=== PATIENT | male | born 1990 | race Caucasian/White ===

== ENCOUNTER 2018-05-05 10:07 | Emergency (ER) | payer MEDICAID ==
[~2018-05-05] VITALS: Ht 185.4 cm; Wt 104.5 kg
[2018-05-05] MEDS ORDERED: LORazepam 2 mg/ml vial IV ONE (10:30)
[2018-05-05] MEDS ORDERED: ketorolac trometh. 30mg/ml inj. IV ONE (10:30)
[2018-05-05 10:37] LABS: BASOPHILS % (AUTO) 0.2 % (0-1); EOSINOPHILS # (AUTO) 0.1 X10'3 (0-0.9); EOSINOPHILS % (AUTO) 0.9 % (0-6); HEMATOCRIT 44.8 % (42.0-52.0); HEMOGLOBIN 15.3 g/dl (14.0-17.9); LYMPHOCYTES # (AUTO) 1.2 X10'3 (1.1-4.8); LYMPHOCYTES % (AUTO) 9.7 % (21-51); MEAN CORPUSCULAR HEMOGLOBIN 33.4 PG (27.0-31.0); MEAN CORPUSCULAR HGB CONC 34.1 % (33.0-36.5); MEAN PLATELET VOLUME 8.5 FL (7.4-10.4); MONOCYTES # (AUTO) 1.2 X10'3 (0-0.9); MONOCYTES % (AUTO) 10.1 % (2-12); NEUTROPHILS # (AUTO) 9.6 X10'3 (1.8-7.7); NEUTROPHILS % (AUTO) 79.1 % (42-75); PLATELET COUNT 261 X10'3 (140-440); RED BLOOD COUNT 4.57 X10'6 (4.70-6.10); RED CELL DISTRIBUTION WIDTH 14.2 % (11.5-14.5); WHITE BLOOD COUNT 12.1 X10'3 (4.5-11.0)
[2018-05-05 10:47] LABS: INR 0.9 INR; PARTIAL THROMBOPLASTIN TIME 29 SECONDS (22-32); PROTHROMBIN TIME 9.7 SECONDS (9.0-12.0)
[2018-05-05 10:52] LABS: ALANINE AMINOTRANSFERASE 35 U/L (12-78); ALBUMIN 3.4 G/DL (3.4-5.0); ALBUMIN/GLOBULIN RATIO 0.8 (1.1-1.5); ALKALINE PHOSPHATASE 44 IU/L (46-116); ANION GAP 5 (8-16); ASPARTATE AMINO TRANSFERASE 27 U/L (10-37); BILIRUBIN,TOTAL 0.9 MG/DL (0.1-1.0); BLOOD UREA NITROGEN 13 MG/DL (7-18); BUN/CREATININE RATIO 12.7 (5.4-32.0); CALCIUM 9.3 MG/DL (8.5-10.1); CHLORIDE 102 MMOL/L (99-107); CREATININE 1.02 MG/DL (0.60-1.10); GLUCOSE 112 MG/DL (70-104); SODIUM 138 MMOL/L (135-145); TOTAL CARBON DIOXIDE 30.6 MMOL/L (24-32); TOTAL PROTEIN 7.5 G/DL (6.4-8.2); eGFR 86 ML/MIN
[2018-05-05 10:54] LABS: POTASSIUM 4.1 MMOL/L (3.5-5.1)
[2018-05-05 10:59] LABS: TROPONIN I < 0.04 NG/ML (0.0-0.05)
[2018-05-05 11:35] VITALS: BP 135/78
[2018-05-05] MEDS ORDERED: HYDR-3965 PO (11:41)
== END 2018-05-05 12:08 | disposition home or self-care (01) ==
LOC: ER 10:07
DX: I26.99 Other pulmonary embolism without acute cor pulmonale (principal); R09.1 Pleurisy; Z79.899 Other long term (current) drug therapy
CPT/HCPCS: 36415; 71046; 80053; 83880; 84484; 85025; 85610; 85730; 93005; 96374; 96375; 99285; J1885; J2060